=== PATIENT | male | born 1955 | race Caucasian/White ===

== ENCOUNTER 2025-05-07 02:20 | Day surgery (SDC) | payer MEDICARE, SELFPAY ==
[2025-04-24 12:13] VITALS: BMI 30.1
--- OUTSIDE RECORDS SUMMARY | 2025-05-07 02:22 | XMS_ITS | Encounter Summary ---
Author Organization [facility] Address [address] [place] [address] Care Team Providers Care Dockworker Name Role Phone Jose C Heller MD Primary Care Provider Unavailable Wong Solo MD Unavailable Carmen Cates [facility]- Unavailable [phone] Elodia Ram MD Primary Care Provider Un available Jose C Purvis MD Primary Care Provider Abigail Tania Solis DRAINLAYER Primary Care Provider [phone] Joan Banegas [facility] Primary Care Provider Unav Michoacano Bills MD Primary Care Provider [phone] Encounter Details Date Type Department Care Team (Late st Contact Info) Description 02/19/2011 Abstract [facility] Clinics Conversion , Generic Conversion, Social History Tobacco Use Types Packs/Day Years Used Date Smoking Tobacco: Never Assessed Sex and Gender Information Value Date Recorded Sex Assigned at Male 06/14/2024 9:22 AM KST OPERATOR Legal Sex Male 9:42 PM CDT Gender Identity Not on file Sexual Orientation Not on file documented as of this encounter Plan of Treatment Upcoming Encounters Date Type Department Care Team (Late st Contact Info) Description 09/24/2025 8:20 AM CDT Office Visit [facility] [address] [place] [address] Michoacano Scott MD [address] [place] [address] 02/27/2026 8:45 AM CDT Office Visit [facility] [address] [place] [phone] Carmen Cates, [facility] [address] [place] [address] documented as of this encounter Visit Diagnoses Not on filedocumented in this encounter Care Teams Dockworker Relationship Specialty Start Date End Date Jose C Heller MD PCP - General FAMILY PRACTICE 01/29/16 04/11/18 Elodia Ram MD [facility] [address] [place] [address] PCP - General INTERNAL MEDICINE 04/12/18 04/28/20 Jose C Purvis MD [facility] [address] [place] [address] PCP - General FAMILY PRACTICE 04/29/20 03/18/21 Tania Chase, DRAINLAYER [address] [place] [address] PCP - General NURSE PRACTITIONER 03/19/21 05/04/22 Joan Banegas, [facility] [address] [place] [address] PCP - General Nurse Practitioner Family 05/05/22 12/16/22 Michoacano Scott MD [address] [place] [phone] PCP - General FAMILY PRACTICE 12/17/22 Wong Solo MD [facility] [address] [place] [address] [place] [employer] Technician CARDIOVASCULAR DISEASE 01/29/16 Carmen Cates, [facility]- [place] [id number] [place] [address] Nurse Practitioner NURSE PRACTITIONER 01/29/16 02/06/17 documented as of this encounter
--- OUTSIDE RECORDS SUMMARY | 2025-05-07 02:22 | XMS_ITS | Clinical Summary ---
Author Organization [facility] Address [address] [place] [address] Care Team Providers Care Hoisting Pile Driving Engineer Name Role Phone Sonal Segura MD Unavailable Michoacano Scott MD Primary Care Provider [phone] Allergies No known active allergies Medications cetirizine 10 MG tablet Take 1 tablet (10 mg total) by mouth daily. 02/07/2014 Active diclofenac sodium (VOLTAREN) 1 % gel Apply 4 g topically. 06/30/2023 Active amoxicillin (AMOXIL) 500 MG capsule Take 4 capsules (2,000 mg total) by mouth once. 08/31/2023 Active flecainide (TAMBOCOR) 100 MG tablet Take 1 tablet (100 mg total) by mouth 2 (two) times daily. 180 tablet 3 02/16/2024 Active aspirin 81 MG chewable tablet Chew 1 tablet (81 mg total) by mouth daily. Active hydroCHLOROthia zide (HYDRODIURIL) 25 MG tablet TAKE 1 TABLET(25 MG) BY MOUTH EVERY MORNING 90 tablet 12/25/2024 Active losartan (COZAAR) 100 MG tablet TAKE 1 TABLET(100 MG) BY MOUTH EVERY EVENING 90 tablet 12/25/2024 Active amLODIPine (NORVASC) 5 MG tablet Take 1 tablet (5 mg total) by mouth every morning. NEW DOSE 30 tablet 3 12/25/2024 Active spironolactone (ALDACTONE) 25 MG tablet TAKE 1 TABLET(25 MG) BY MOUTH DAILY 90 tablet 03/26/2025 Active Active Problems Problem Noted Date Diagnosed Date Encounter for screening colonoscopy 09/26/2023 Assessment & Plan (03/27/2025 8:46 AM CDT): He is still overdue for screening colonoscopy. He will call me whenever he is ready and for dates. Assessment & Plan (09/26/2023 9:20 AM CDT): Patient is due for his routine regular blood test including PSA. Allergic rhinitis 03/21/2023 Assessment & Plan (03/27/2025 8:45 AM CDT): Stable and controlled. Continue Zyrtec 10 mg nightly. Assessment & Plan (09/25/2024 9:52 AM CDT): Stable and controlled. Continue Zyrtec 10 mg nightly. Assessment & Plan (03/28/2024 8:37 AM CDT): Stable. Continue Zyrtec 10 mg nightly. Assessment & Plan (03/21/2023 1:46 PM CDT): Stable and controlled. Continue Zyrtec 10 mg nightly. Pre-operative clearance 03/21/2023 Assessment & Plan (03/21/2023 1:48 PM CDT): Patient seen recently by cardiology and cardiac webb cleared to undergo stated procedure. He is likewise medically cleared to undergo left total hip arthroplasty April 11, 2023.= May hold aspirin 7 days prior to procedure. Osteoarthritis of left knee 05/16/2022 Assessment & Plan (03/27/2025 8:45 AM CDT): So far patient continues to do well. On and off mild left hip pain. He takes Voltaren/diclofenac gel 1% as needed. Follow-up Ortho. Assessment & Plan (09/25/2024 9:53 AM CDT): On and off pain. So far patient continues to do well. He takes as needed Voltaren/diclofenac gel 1%. Monitor. Follow-up Ortho. Assessment & Plan (03/28/2024 8:37 AM CDT): So far patient is doing well. Monitor. Follow-up Ortho. He takes as needed Voltaren/diclofenac gel 1% as needed. Assessment & Plan (09/26/2023 9:20 AM CDT): Currently taking Voltaren/diclofenac gel 1% as needed for responding. Monitor. Follow-up Ortho. Assessment & Plan (05/16/2022 9:41 AM CARROT HARVESTER): We discussed the risks, benefits and alternatives. The only thing proven to slow the progression of osteoarthritis is weight loss. Every pound lost relieves 4 to 6 pounds of stress across the knee. We discussed unloading braces. Formal physical therapy to help with flexibility, mobility and strength. We discussed TENS units. Nonsteroidal anti-inflammatories as well as Tylenol and pain medication and their side effects. We discussed steroid versus Visco supplement injection. We discussed eventual total knee arthroplasty. Steroid injected today Follow-up in 6 Physician directed exercises given Obesity 11/03/2015 Overview (04/12/2018): bmi 30 needs to lose 5 lbs Assessment & Plan (05/16/2022 9:42 AM CARROT HARVESTER): We discussed the adverse effects of weight on osteoarthritis. For every 1 pound loss, 4 to 6 pounds of stress is relieved from the knee, slightly more at the ankle and slightly less at the hip. Paroxysmal atrial fibrillation Assessment & Plan (03/27/2025 8:44 AM CDT): Stable and controlled. Remaining in sinus rhythm. Denies any symptoms of heart failure. Continue flecainide 100 mg twice daily. Baby aspirin was discontinued per cardiology. Follow-up cardiology. Assessment & Plan (09/25/2024 9:52 AM CDT): Stable and controlled. In sinus rhythm. Denies any symptoms of heart failure. Continue flecainide 100 mg twice daily, aspirin 81 mg daily. Follow-up cardiology. Routine labs next visit. Assessment & Plan (03/28/2024 8:36 AM CDT): Stable and well-controlled. Remaining sinus rhythm. Denies any symptoms of heart failure. Continue flecainide 100 mg twice daily, aspirin 81 mg daily. Follow-up cardiology. Assessment & Plan (09/26/2023 9:19 AM CDT): Stable and controlled. In sinus rhythm. Denies any symptoms of heart failure. Continue flecainide 100 mg twice daily, aspirin 325 mg daily. Follow-up cardiology. Will get routine blood test/labs. Assessment & Plan (03/21/2023 1:46 PM CDT): Stable and well-controlled. Remaining in sinus rhythm. Denies any symptoms of heart failure. Currently on flecainide 100 mg twice daily and regular aspirin 325 mg daily. Patient continues to do well. Follow-up cardiology. Primary hypertension Assessment & Plan (03/27/2025 8:45 AM CDT): BP is controlled. Continue losartan, HCTZ, amlodipine and spironolactone. Diet and exercise. Assessment & Plan (09/25/2024 9:52 AM CDT): Normotensive and controlled. Continue losartan 50 mg daily, HCTZ 12.5 mg daily and low-salt diet. Exercise and stay active. Labs next visit. Assessment & Plan (03/28/2024 8:36 AM CDT): Repeat BP 125/72. Continue losartan 50 mg daily, HCTZ 12.5 mg daily and low-salt diet. Stay active. Assessment & Plan (09/26/2023 9:18 AM CDT): Normotensive and controlled. Continue losartan 50 mg daily, HCTZ 12.5 mg daily and low-salt diet. Exercise and stay active. Assessment & Plan (03/21/2023 1:46 PM CDT): BP is well controlled and normotensive. Currently on losartan 50 mg daily, HCTZ 12.5 mg daily. Low-salt diet. Exercise and stay active. Resolved Problems Problem Noted Date Diagnosed Date Resolved Date Primary osteoarthritis of left hip 05/16/2022 06/14/2024 Assessment & Plan (03/27/2025 8:46 AM CDT): SP left total hip arthroplasty April 11, 2023. Patient continues to do well. Ambulating well. Continue exercise learned from PT. Follow-up Ortho. Assessment & Plan (09/25/2024 9:53 AM CDT): SP left total hip arthroplasty April 11, 2023. Ambulating well. Continues to do well. Continue exercises learned from PT. Follow-up Ortho. Assessment & Plan (03/28/2024 8:37 AM CDT): SP left total hip arthroplasty April 11, 2023. Patient continues to do well. Ambulating well. Continue exercises learned from PT. Follow-up Ortho. Assessment & Plan (09/26/2023 9:19 AM CDT): SP total hip arthroplasty April 11, 2023. Patient tolerated procedure well with no complications noted. He is ambulating well with no problems at all. Continue exercises learned from PT. Follow-up Ortho. Assessment & Plan (03/21/2023 1:45 PM CDT): Patient is scheduled for left total hip arthroplasty April 11, 2023. He was just seen recently by his grinder machine knife setter and cardiac webb cleared to undergo stated procedure. Physical examination essentially unremarkable. Recent routine blood test done July-.--Patient is likewise medically cleared to undergo left total hip arthroplasty. Assessment & Plan (05/16/2022 9:40 AM CARROT HARVESTER): We discussed the risks, benefits and alternatives. The only thing proven to slow the progression of osteoarthritis is weight loss. Every pound lost relieves 4 to 6 pounds of stress across the knee, slightly less at the hip and slightly more at the ankle. Formal physical therapy to help with flexibility, mobility and strength. We discussed TENS units. Nonsteroidal anti-inflammatories as well as Tylenol and pain medication and their side effects. We discussed steroid injection. We discussed eventual total hip arthroplasty. Certainly, some of his pain can be referred down to his knee Encounters Date Type Department Care Team Description 04/22/2025 Scan HEALTH INFO [facility] Scanned, Doc [facility] 04/16/2025 Telephone [facility] [address] [place] [address] Michoacano Scott MD Orders 04/04/2025 Telephone [facility] [address] [place] [phone] Michoacano Scott MD Referral 03/27/2025 8:00 AM CDT Office Visit MED [facility] [address] [place] [phone] Michoacano Scott MD Follow Up (6mo chronic) 03/27/2025 Travel 02/21/2025 8:45 AM CDT Office Visit [facility] [address] [place] [address] Sonal Segura MD Follow Up; Atrial Fibrillation 02/21/2025 Travel from Last 3 Months Immunizations Immunization Administration Dates Next Due Afluria 36 MONTHS+ (Prefille d Syringe IIV4) 04/09/2019 Fluzone 6 Months+ Quad (0.5 mL Prefilled Syringe) 04/12/2018 Fluzone High Dose - >Age 65 (Prefilled Syringe) 04/05/2022,03/30/2021,03/29/2020 Influenza Adult (Generic) 05/14/2016,01/2015,06/09/2013,2011,06/09/2010,03/05/2009 MODERNA COVID-19 (12+) MRNA, LNP-S, PF, 100 MCG/ 0.5 ML DOSE 07/31/2020,07/03/2020 Shingrix 06/26/2019,04/09/2019 Tdap (Generic) 02/06/2008 Tdap (Historical Only-select from magnify glass) 04/12/2018 Family History Medical History Relation Comments COPD Father Emphysema Father Cancer Mother colon ca Heart Disease Other Relation Status Comments Father Mother Other Social History Tobacco Use Types Packs/Day Years Used Date Smoking Tobacco: Never Passive Smoke Exposure: Never Smokeless Tobacco: Never Tobacco Cessation:Counseling Given: No Alcohol Use Standard Drinks/Week Comments Yes 10 (1 standard drink = 0.6 oz pu re alcohol) Drinks moderately on weekends PHQ-2 Answer Date Recorded Patient Health Questionnaire-2 Score 0 06/14/2024 Sex and Gender Information Value Date Recorded Sex Assigned at Male 06/14/2024 9:22 AM CARROT HARVESTER Legal Sex Male 9:42 PM CDT Gender Identity Not on file Sexual Orientation Not on file 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 Not on file Last Filed Vital Signs Vital Sign Reading Time Taken Comments Blood Pressure 128/78 03/27/2025 8:04 AM CDT Pulse 65 03/27/2025 8:04 AM CDT Temperature 36.5 C (97.7 F) 03/27/2025 8:04 AM CDT Respiratory Rate 18 03/27/2025 8:04 AM CDT Oxygen Saturation 94% 03/27/2025 8:04 AM CDT Inhaled Oxygen Concentration - - Weight 96.2 kg (212 lb 2 oz) 03/27/2025 8:04 AM CDT Height 177.8 cm (5' 10) 03/27/2025 8:04 AM CDT Body Mass Index 30.44 03/27/2025 8:04 AM CDT Plan of Treatment Upcoming Encounters Date Type Department Care Team (Late st Contact Info) Description 09/24/2025 8:20 AM CDT Office Visit [facility] [address] [place] [address] Michoacano Scott MD [address] [place] [address] 02/27/2026 8:45 AM CDT Office Visit [facility] [address] [place] [address] Carmen Cates, ANP-BC [facility]. [facility] [address] [place] [address] Health Maintenance Due Date Last Done Comments Colorectal Cancer Screening Colonoscopy (10 Years) 1955 Hepatitis C 1972 Pneumococcal Vaccine: 50+ Years (1 of 2 - PCV) 1973 RSV Immunization or 60+ Years (1 - Risk 60-74 years 1-dose series) 2014 Annual Medicare Wellness Visit 2019 COVID-19 Vaccine ( - season) 2025 05/31/2024, 05/25/2022, 04/28/2021, Additional history exists Influenza Adult (#1) 2025 05/31/2024, 04/05/2022, 03/30/2021, Additional history exists DTaP, Tdap and Td Vaccines (3 - Td or Tdap) 04/12/2028 04/12/2018, 02/06/2008 Zoster Vaccines Completed 06/26/2019, 04/09/2019 PHQ-2 (Physician [place]) Completed 06/14/2024 Hepatitis A Vaccines Aged Out No long er eligible based on patient's age to complete this topic Meningococcal B Vaccine Aged Out No l onger eligible based on patient's age to complete this topic Meningococcal Vaccine Aged Out No suresh hayes eligible based on patient's age to complete this topic RSV Immunizations Under 20 Months Aged Out No longer eligible based on patient's age to complete this topic Procedures Procedure Name Priority Date/Time Associated Diagnosis Comments ELECTROCARDIOGRAM (NON MIDMARK ACQUIRED) Routine 02/21/2025 8:51 AM CDT PAF (paroxysmal atrial fibrillation) ([facility]) COLONOSCOPY Routine CARROT HARVESTER from Last 3 Months or Most Recently Relevant to Health Maintenance Results * ELECTROCARDIOGRAM (02/21/2025 8:51 AM CDT) 02/21/2025 8:51 AM CDT Narrative [facility] - 02/24/2025 7:10 AM CDT [facility] Test Date: 2025-02-21 Pat Name: MUSHTAQ CLAY Department: 108 Room: Gender: Male Cutter Operator Tile: : 1955 Requested By: SONAL SEGURA Order Number: [id number] Reading MD: Sonal Segura Measurements Intervals Brandon Rate: 62 P: 75 [place]: 209 QRS: 74 QRSD: 97 T: 70 QT: 407 QTc: 414 Interpretive Statements SINUS RHYTHM Procedure Note Sonal Segura MD - 02/24/2025 [facility] Test Date: 2025-02-21 Pat Name: MUSHTAQ CLAY Department: 108 Room: Gender: Male Cutter Operator Tile: : 1955 Requested By: SONAL SEGURA Order Number: [id number] Reading MD: Sonal Segura Measurements Intervals Brandon Rate: 62 P: 75 [place]: 209 QRS: 74 QRSD: 97 T: 70 QT: 407 QTc: 414 Interpretive Statements SINUS RHYTHM us Sonal Segura MD PROCEDURES-ORDERABLE NO CHARGE F inal Result [facility] * Colonoscopy ( CARROT HARVESTER) Narrative [facility] TO EPIC CONVERSION - CARROT HARVESTER Documented hx of procedure Procedure Note Janes Monroe MD - 04/02/2018 Documented hx of procedure us Generic Conversion Md [facility] PROCEDURE ORDERABLES Final Result [facility] TO EPIC CONVERSION from Last 3 Months or Most Recently Relevant to Health Maintenance Insurance MEDICARE [facility] MEDICARE [facility] Care Teams Hoisting Pile Driving Engineer Relationship Specialty Start Date End Date Tyler, Michoacano A, MD [address] [place] [phone] PCP - General FAMILY PRACTICE 12/17/22 Sonal Segura MD [facility]. [facility] [address] [place] [address] [place] [employer] Service Writer CARDIOVASCULAR DISEASE 01/29/16
--- OUTSIDE RECORDS SUMMARY | 2025-05-07 02:22 | XMS_ITS | Encounter Summary ---
Author Organization [facility] Address [address] [place] [address] Care Team Providers Care Research Phlebotomist Name Role Phone Jose C Heller MD Primary Care Provider Unavailable Wong Solo MD Unavailable Carmen Cates [facility]- Unavailable [phone] Elodia Ram MD Primary Care Provider Un available Jose C Purvis MD Primary Care Provider Abigail Tania Solis BRAN MIXER Primary Care Provider [phone] Joan Banegas [facility] Primary Care Provider Unav Michoacano Bills MD Primary Care Provider [phone] Encounter Details Date Type Department Care Team (Late st Contact Info) Description 04/01/2011 Abstract [facility] Conversion , Generic Conversion, Social History Tobacco Use Types Packs/Day Years Used Date Smoking Tobacco: Never Assessed Sex and Gender Information Value Date Recorded Sex Assigned at Male 06/14/2024 9:22 AM BOX BRANDER Legal Sex Male 9:42 PM CDT Gender Identity Not on file Sexual Orientation Not on file documented as of this encounter Plan of Treatment Upcoming Encounters Date Type Department Care Team (Late st Contact Info) Description 09/24/2025 8:20 AM CDT Office Visit [facility] [address] [place] [address] Michoacano Scott MD [address] [place] [address] 02/27/2026 8:45 AM CDT Office Visit [facility] [address] [place] [phone] Carmen Cates, [facility] [address] [place] [address] documented as of this encounter Visit Diagnoses Not on filedocumented in this encounter Care Teams Research Phlebotomist Relationship Specialty Start Date End Date Jose C Heller MD PCP - General FAMILY PRACTICE 01/29/16 04/11/18 Elodia Ram MD [facility] [address] [place] [address] PCP - General INTERNAL MEDICINE 04/12/18 04/28/20 Jose C Purvis MD [facility] [address] [place] [address] PCP - General FAMILY PRACTICE 04/29/20 03/18/21 Tania Chase, BRAN MIXER [address] [place] [address] PCP - General NURSE PRACTITIONER 03/19/21 05/04/22 Joan Banegas, [facility] [address] [place] [address] PCP - General Nurse Practitioner Family 05/05/22 12/16/22 Michoacano Scott MD [address] [place] [phone] PCP - General FAMILY PRACTICE 12/17/22 Wong Solo MD [facility] [address] [place] [address] Holder Process Control Operator CARDIOVASCULAR DISEASE 01/29/16 Carmen Cates, [facility]- [place] [address] [place] [address] Nurse Practitioner NURSE PRACTITIONER 01/29/16 02/06/17 documented as of this encounter
--- OUTSIDE RECORDS SUMMARY | 2025-05-07 02:22 | XMS_ITS | Encounter Summary ---
Author Organization [facility] Address [address] [place] [address] Care Team Providers Care Real Estate Acquisition Analyst Name Role Phone Jose C Heller MD Primary Care Provider Unavailable Wong Solo MD Unavailable Elodia Ram MD Primary Care Provider Un available Jose C Purvis MD Primary Care Provider Abigail Tania Solis NP Primary Care Provider [phone] Joan Banegas [facility] Primary Care Provider Unav Michoacano Bills MD Primary Care Provider [phone] Encounter Details Date Type Department Care Team (Late st Contact Info) Description 08/02/2017 [facility] at [address] [address] Carlos Jordan MA Social History Tobacco Use Types Packs/Day Years Used Date Smoking Tobacco: Never Alcohol Use Standard Drinks/Week Comments Yes 0 (1 standard drink = 0.6 oz pur e alcohol) Drinks moderately on weekends Sex and Gender Information Value Date Recorded Sex Assigned at Male 06/14/2024 9:22 AM CREDIT FRONT OFFICE DEVELOPER Legal Sex Male 9:42 PM CDT Gender Identity Not on file Sexual Orientation Not on file 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 [place] [address] documented as of this encounter Procedures Procedure Name Priority Date/Time Associated Diagnosis Comments CBC (OUTSIDE LAB) Routine 02/01/2018 COMPREHENSIVE METABOLIC PANEL Routine 02/01/2018 LIPID PANEL Routine 02/01/2018 THYROID STIM HORMONE TSH Routine 02/01/2018 CBC (OUTSIDE LAB) Routine 07/19/2017 COMPREHENSIVE METABOLIC PANEL Routine 07/19/2017 LIPID PANEL Routine 07/19/2017 HEMOGLOBIN GLYCOSYLATED A1C Routine 07/19/2017 URIC ACID BLOOD Routine 07/19/2017 documented in this encounter Results * THYROID STIM HORMONE, TSH (02/01/2018) TSH 1.253 02/01/2018 [facility] Final Result * LIPID PANEL (02/01/2018) CHOLESTEROL 202 HDL 47 TRIGLYCERIDES 184 LDL (CALCULATED) 118 02/01/2018 [facility] Final Result * COMPREHENSIVE METABOLIC PANEL (02/01/2018) SODIUM S/P/B 140 POTASSIUM S/P/B 3.6 CO2 27.4 CHLORIDE S/P/B 103 GLUCOSE 86 mg/dL CALCIUM S/P/B 9.1 BUN 23 CREATININE S/P/B 1.11 0.7 - 1.3 ALKALINE PHOSPHATASE S/P/B 68 ALT 34 AST 22 BILIRUBIN TOTAL S/P/B 0.9 ALBUMIN S/P/B 4.2 3.5 - 5.0 TOTAL PROTEIN S/P/B 7.1 02/01/2018 [facility] Edited Resul t - Final * CBC (OUTSIDE LAB) (02/01/2018) WBC 6.0 HGB 16.1 HCT 47.2 PLT 175 02/01/2018 [facility]-OUTSIDE/ABSTRACTED Final Result * HEMOGLOBIN, GLYCOSYLATED (07/19/2017) HGB A1C 5.6 07/19/2017 [facility] Final Result * LIPID PANEL (07/19/2017) CHOLESTEROL 139 HDL 32 TRIGLYCERIDES 181 LDL (CALCULATED) 71 07/19/2017 us [facility] Final Result * URIC ACID BLOOD (07/19/2017) URIC ACID 4.7 07/19/2017 us Doc [facility] Final Result * COMPREHENSIVE METABOLIC PANEL (07/19/2017) SODIUM S/P/B 138 POTASSIUM S/P/B 3.7 CO2 30 CHLORIDE S/P/B 102 GLUCOSE 103 mg/dL CALCIUM S/P/B 8.8 BUN 24 CREATININE S/P/B 1.1 0.7 - 1.3 ALKALINE PHOSPHATASE S/P/B 58 ALT 65 AST 42 BILIRUBIN TOTAL S/P/B 0.6 ALBUMIN S/P/B 3.8 3.5 - 5.0 TOTAL PROTEIN S/P/B 7.5 07/19/2017 us [facility] Edited Resul t - Final * CBC (OUTSIDE LAB) (07/19/2017) WBC 4.3 HGB 15.3 HCT 45.5 PLT 186 07/19/2017 us Doc [facility]-OUTSIDE/ABSTRACTED Final Result documented in this encounter Visit Diagnoses Not on filedocumented in this encounter Care Teams Real Estate Acquisition Analyst Relationship Specialty Start Date End Date Jose C Heller MD PCP - General FAMILY PRACTICE 01/29/16 04/11/18 Elodia Ram MD [address] [address] PCP - General INTERNAL MEDICINE 04/12/18 04/28/20 Jose C Purvis MD [address] [address] PCP - General FAMILY PRACTICE 04/29/20 03/18/21 Tania Chase NP [address] [place] [address] PCP - General NURSE PRACTITIONER 03/19/21 05/04/22 Joan Banegas, MANAGER OF MANUFACTURING-BC [address] [place] [address] PCP - General Nurse Practitioner Family 05/05/22 12/16/22 Michoacano Scott MD [address] [place] [phone] PCP - General FAMILY PRACTICE 12/17/22 Wong Solo MD Three [facility]. [facility] [address] [place] [address] Berta Bailiff CARDIOVASCULAR DISEASE 01/29/16 documented as of this encounter
--- OUTSIDE RECORDS SUMMARY | 2025-05-07 02:22 | XMS_ITS | Encounter Summary ---
Author Organization [facility] Address [address] [place] [address] Care Team Providers Care Busboy Name Role Phone Jose C Heller MD Primary Care Provider Unavailable Wong Solo MD Unavailable Carmen Cates [facility]- Unavailable [phone] Elodia Ram MD Primary Care Provider Un available Jose C Purvis MD Primary Care Provider Abigail Tania Solis DIRECTOR OF SALES AND MARKETING Primary Care Provider [phone] Joan Banegas [facility] Primary Care Provider Unav Michoacano Bills MD Primary Care Provider [phone] Encounter Details Date Type Department Care Team (Late st Contact Info) Description 07/23/1999 [facility] Conversion , Generic Conversion, Social History Tobacco Use Types Packs/Day Years Used Date Smoking Tobacco: Never Assessed Sex and Gender Information Value Date Recorded Sex Assigned at Male 06/14/2024 9:22 AM ASSISTANT CORPORATE SECRETARY Legal Sex Male 9:42 PM CDT Gender Identity Not on file Sexual Orientation Not on file documented as of this encounter Plan of Treatment Upcoming Encounters Date Type Department Care Team (Late st Contact Info) Description 09/24/2025 8:20 AM CDT Office Visit [facility] [address] [place] [address] Michoacano Scott MD [address] [place] [address] 02/27/2026 8:45 AM CDT Office Visit [facility] [address] [place] [phone] Carmen Cates, [facility] [address] [place] [address] documented as of this encounter Visit Diagnoses Not on filedocumented in this encounter Care Teams Busboy Relationship Specialty Start Date End Date Jose C Heller MD PCP - General FAMILY PRACTICE 01/29/16 04/11/18 Elodia Ram MD [facility] [address] [place] [address] PCP - General INTERNAL MEDICINE 04/12/18 04/28/20 Jose C Purvis MD [facility] [address] [place] [address] PCP - General FAMILY PRACTICE 04/29/20 03/18/21 Tania Chase, DIRECTOR OF SALES AND MARKETING [address] [place] [address] PCP - General NURSE PRACTITIONER 03/19/21 05/04/22 Joan Banegas, [facility] [address] [place] [address] PCP - General Nurse Practitioner Family 05/05/22 12/16/22 Michoacano Scott MD [address] [place] [phone] PCP - General FAMILY PRACTICE 12/17/22 Wong Solo MD [facility] [address] [place] [address] [place] [employer] Manager CARDIOVASCULAR DISEASE 01/29/16 Carmen Cates, [facility]- [place] [id number] [place] [address] Nurse Practitioner NURSE PRACTITIONER 01/29/16 02/06/17 documented as of this encounter
--- OUTSIDE RECORDS SUMMARY | 2025-05-07 02:22 | XMS_ITS | Encounter Summary ---
Author Organization [facility] Address [address] [place] [address] Care Team Providers Care Telecommunications Clerk Name Role Phone Wong Solo MD Unavailable Michoacano Scott MD Primary Care Provider [phone] Encounter Details Date Type Department Care Team (Late st Contact Info) Description 07/08/2024 Xan[facility] Message [facility] [address] Wong Solo MD [address] [address] Blood Pressure Social History Tobacco Use Types Packs/Day Years Used Date Smoking Tobacco: Never Passive Smoke Exposure: Never Smokeless Tobacco: Never Alcohol Use Standard Drinks/Week Comments Yes 10 (1 standard drink = 0.6 oz pu re alcohol) Drinks moderately on weekends PHQ-2 Answer Date Recorded Patient Health Questionnaire-2 Score 0 06/14/2024 Sex and Gender Information Value Date Recorded Sex Assigned at Male 06/14/2024 9:22 AM EDUCATIONAL DIRECTOR Legal Sex Male 9:42 PM CDT Gender Identity Not on file Sexual Orientation Not on file 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 Not on file documented as of this encounter Progress Notes * Faith Diane RN - 07/09/2024 4:25 PM CST fyi ATIONAL DIRECTOR * Faith Diane RN - 07/09/2024 8:47 AM CST . ATIONAL DIRECTOR documented in this encounter Plan of Treatment Upcoming Encounters Date Type Department Care Team (Late st Contact Info) Description 09/24/2025 8:20 AM CDT Office Visit [facility] [address] [place] [address] Michoacano Scott MD [address] [place] [address] 02/27/2026 8:45 AM CDT [facility] [address] [place] [address] Carmen Cates, ANP- [address] [place], [place] [id number] documented as of this encounter Visit Diagnoses Not on filedocumented in this encounter Additional Health Concerns Assessment Noted Time PHQ-9 Depression Total Score: 0 03/30/20 8:49 AM CDT documented as of this encounter Care Teams Telecommunications Clerk Relationship Specialty Start Date End Date Michoacano Scott MD [address] [place] [address] PCP - General FAMILY PRACTICE 12/17/22 Wong Solo MD [address] [place], [place] [id number] [place] Director Investor Relations CARDIOVASCULAR DISEASE 01/29/16 documented as of this encounter
[2025-05-07 12:23] VITALS: BP 148/92; PULSE 73; RESP 16; TEMP 36.8; O2SAT 96; BMI 30.4
--- NOTE | 2025-05-07 12:30 | WPDANESEPPF ---
Anes - Initial Pre Proc Eval Procedure: Operation Date: 05/07/25 13:30 Proposed Procedures p Screening Colonoscopy - Wade Olivares DO Date/Time: 05/07/25 12:30 Surgeon: Wade Olivares DO Pre Op Diagnosis: Screening for malignant neoplasm of colon Patient Data Age: 69 Gender: M Height: 1.78 m Weight: 95.3 kg Allergies Allergy/AdvReac Type Severity Reaction Status Date / Time No Known Allergies Allergy Verified 05/07/25 12:27 Home Medications ?Medication ?Instructions ?Recorded ?Confirmed ?Type amlodipine 10 mg tablet 5 mg PO DAILY 04/24/25 05/07/25 History flecainide 100 mg tablet 100 mg PO BID 04/24/25 05/07/25 History hydrochlorothiazide 25 mg tablet 25 mg PO DAILY 04/24/25 05/07/25 History losartan 100 mg tablet 50 mg PO DAILY 04/24/25 05/07/25 History spironolactone 25 mg tablet 25 mg PO DAILY 04/24/25 05/07/25 History Patient hx anesthesia problems: none Family hx anesthesia problems: none Results Review: All pre-operative results and documents have been reviewed as part of the pre-operative evaluation. [facility] Past Medical History Medical History (Updated 05/07/25 @ 12:50 by Alexis Kingsley MD) Paroxysmal A-fib Social History Social History Smoking status: Never smoker Alcohol intake: current Drinks per week: 10 Substance use type: does not use Living arrangements: with family Spiritual care concerns: No Anes - Eval Final PreProcedure Day of Procedure 05/07/25 12:30 Patient weight: obese Heart: regular rate and rhythm Lungs: clear to auscultation Airway: Mallampati scale class II Neurological: alert and oriented Last oral intake: >/= 8 hours ASA classification: III Emergent: no Anesthetic plan: proceed Anesthesia type and monitoring: general GIVS and standard monitoring Results Review: All pre-operative results and documents have been reviewed as part of the pre-operative evaluation. Informed Consent: The patient's anesthetic plan and its attendant risks and benefits were discussed with the patient/family/POA. Questions were solicited and answers provided to the satisfaction of the patient/family/POA.
[2025-05-07] MEDS: LACTATED RINGERS 1,000 ML 150 ML IV CONT (12:46)
--- NOTE | 2025-05-07 13:15 | PM.IMHP2 ---
H&P: HPI History of Present Illness Date/Time: 05/07/25 13:15 Chief Complaint: Screening for colorectal cancer Narrative: This is a 69-year-old man who presents for colonoscopy. His last colonoscopy was 6 years ago or so. He denies any hematochezia or melena. He does have a family history of colon cancer in his father. Review of Systems Review of Systems: All systems reviewed & are unremarkable except as noted in HPI and below Constitutional: Constitutional: Denies chills, Denies fever(s), Denies headache(s) and Denies weight loss Eyes: Eyes: Denies change in vision ENT: Denies dizziness, Denies headache(s), Denies neck mass and Denies throat swelling Cardiovascular: Cardiovascular: Denies chest pain, Denies lightheadedness and Denies dyspnea Respiratory: Respiratory: Denies cough, Denies dyspnea and Denies wheezing Gastrointestinal: Gastrointestinal: Denies abdominal pain, Denies change in bowel habits, Denies nausea and Denies vomiting Genitourinary: Genitourinary: Denies hematuria and Denies dysuria Musculoskeletal: Musculoskeletal: Reports as per HPI Integumentary/Breasts: Skin/Breast: Reports as per HPI Neurologic: Denies dizziness and Denies headache(s) Allergic/Immunologic: Allergic/Immunologic: Denies throat swelling and Denies wheezing [facility] Past Medical History Medical History (Updated 05/07/25 @ 13:16 by Wade Olivares DO) Paroxysmal A-fib Social History Social History Smoking status: Never smoker Alcohol intake: current Drinks per week: 10 Substance use type: does not use Living arrangements: with family Spiritual care concerns: No Meds Home Medications and Allergies Home Medications ?Medication ?Instructions ?Recorded ?Confirmed ?Type amlodipine 10 mg tablet 5 mg PO DAILY 04/24/25 05/07/25 History flecainide 100 mg tablet 100 mg PO BID 04/24/25 05/07/25 History hydrochlorothiazide 25 mg tablet 25 mg PO DAILY 04/24/25 05/07/25 History losartan 100 mg tablet 50 mg PO DAILY 04/24/25 05/07/25 History spironolactone 25 mg tablet 25 mg PO DAILY 04/24/25 05/07/25 History Allergies Allergy/AdvReac Type Severity Reaction Status Date / Time No Known Allergies Allergy Verified 05/07/25 12:27 Vital Signs Vital Signs - 24 hr 05/07/25 12:23 Temperature 98.3 F Pulse Rate 73 Respiratory Rate 16 Blood Pressure 148/92 H Pulse Oximetry 96 Oxygen Delivery Room Air Exam Const: General: no acute distress and alert Orientation/consciousness: patient oriented x3 HENMT: Head: normocephalic and atraumatic Ears: hearing grossly normal bilaterally Face/Nose/Sinus: Normal nares present Mouth: Yes Normal oral and palatal mucosa present Eyes: Periorbital: periorbital findings normal Sclera: sclerae normal EOM: EOMs intact bilaterally Neck: Neck: normal visual inspection, no lymphadenopathy and trachea midline Chest: Chest palpation & inspection: normal inspection of the chest Resp: Effort & Inspection: normal respiratory effort Auscultation: clear to auscultation bilaterally Cardio: Jugular venous distension: no JVD Rate: regular rate Rhythm: regular rhythm Heart sounds: S1 normal heart sound present and S2 normal heart sound present Peripheral pulses: Peripheral pulses 2+ throughout GI: Inspection: normal to inspection GI Palp: Yes Soft to palpation, No Tenderness to palpation present (GI), No Guarding due to palpation present (GI) and No Rebound tenderness present Percussion: Yes normal to percussion Auscultation: normal bowel sounds : General: Yes no CVA tenderness Back/Spine/Pelvis: Back: no CVA tenderness Neuro: General: patient oriented x3, no focal motor deficits and CN's II-XI intact bilaterally Cognition (Neuro): normal cognition Speech: normal speech Motor exam (neuro): 5/5 motor strength present throughout Extrem: General: capillary refill normal and no clubbing, cyanosis or edema Assessment and Plan Assessment and plan (1) Family history of colon cancer: Code(s): Z80.0 - Family history of malignant neoplasm of digestive organs Status: Acute Assessment and Plan: I have recommended colonoscopy. I have discussed the procedure, risks, benefits, and alternatives. Questions were answered. Patient is agreeable to proceed.
--- NOTE | 2025-05-07 13:38 | S_PTH ---
PATIENT: Mushtaq Clay LOC: [place] #:[id number] AGE/SX: 69/M ROOM: RE05/07/[address]: Wade Olivares DO : 1955 BED: DIS: 05/07/2025 SPEC #: [id number] RECD: 05/07/25 14:46 STATUS: ADIEL REQ #: [id number] LACEY: 05/07/25 13:[address]: Wade Olivares DEPT: [facility] Surgical RECD BY: Loly Desai MLT, ([facility]) ENTERED: 05/07/25 14:47 SP TYPE: Surgical OTHR DR: Michoacano Scott, Tissues: A - Colon Polypectomy B - Colon Polypectomy Procedures: Hematoxylin and Eosin Stain Gross and Microscopic Level 4
[2025-05-07 13:39] VITALS: BP 118/78; PULSE 69; RESP 24; O2SAT 95
[2025-05-07 13:49] VITALS: BP 123/86; PULSE 64; RESP 20; O2SAT 96
[2025-05-07 13:59] VITALS: BP 135/98; PULSE 62; RESP 18; O2SAT 97
== END 2025-05-07 14:08 | disposition home or self-care (01) ==
PROVIDERS: PCP Family Medicine; Visit Provider Surgery
PROC: 0DJD8ZZ Inspection of Lower Intestinal Tract, Via Natural or Artificial Opening Endoscopic (ICD-10-PCS; CPT 45378; principal; 2025-05-07 13:30)
DX: Z12.11 Encounter for screening for malignant neoplasm of colon (principal); D12.3 Benign neoplasm of transverse colon; D12.8 Benign neoplasm of rectum; K57.30 Diverticulosis of large intestine without perforation or abscess without bleeding; I48.0 Paroxysmal atrial fibrillation; E66.9 Obesity, unspecified; Z68.30 Body mass index [BMI] 30.0-30.9, adult; Z80.0 Family history of malignant neoplasm of digestive organs
CPT/HCPCS: 45380; 45385; 88305; J2704; J7120